=== PATIENT | female | born 1960 | race Caucasian/White ===

== ENCOUNTER 2016-11-16 14:10 | Emergency (ER) | payer BC, OTHER ==
[2016-11-16] MEDS ORDERED: IPRATROPIUM/ALBUTEROL 0.5-2.5 MG/3 ML AMPUL NEB ONE (14:31)
[2016-11-16] MEDS ORDERED: PREDNISONE 20 MG TABLET PO ONE (14:31)
--- NOTE | 2016-11-16 15:00 | ER Document Report ---
ED Respiratory Problem - General Chief Complaint: Medication Refill Stated Complaint: DIFFICULTY BREATHING Time Seen by Provider: 11/16/16 14:26 Mode of Arrival: Ambulatory Information source: Patient Notes: 56-year-old female presents to ED for shortness of breath wheezing. She states she is on asthma occasions and she is out of her albuterol inhaler. She states that work today she became very short of breath. TRAVEL OUTSIDE OF THE [place] IN LAST 30 DAYS: No - HPI Patient complains to provider of: Asthma, Short of breath Onset: Other - Exacerbation Initiating Event: Out of meds Quality of pain: Achy Severity: Moderate Pain Level: 3 Context: Hx asthma Short of Breath: Mild Chest pain/discomfort: Tightness Cough: Nonproductive Sputum amount: None At home treatment: Bronchodilators, Inhaled steroids Associated symptoms: Difficulty breathing, Wheezing Similar symptoms previously: Yes Recently seen / treated by doctor: No - Related Data Allergies/Adverse Reactions: codeine [Codeine] Allergy (Verified 09/02/13 07:22) Past Medical History - General Information source: Patient - Social History Smoking Status: Former Smoker Cigarette use (# per day): No Chew tobacco use (# tins/day): No Smoking Education Provided: No Frequency of alcohol use: None Drug Abuse: None Occupation: [employer] Lives with: Family Family History: None - Adopted Patient has suicidal ideation: No Patient has homicidal ideation: No - Past Medical History Cardiac Medical History: Reports: None Pulmonary Medical History: Reports: Hx Asthma EENT Medical History: Reports: None Neurological Medical History: Reports: None Endocrine Medical History: Reports: None Renal/ Medical History: Reports: None Malignancy Medical History: Reports: None GI Medical History: Reports: None Musculoskeltal Medical History: Reports None Skin Medical History: Reports None Psychiatric Medical History: Reports: None Traumatic Medical History: Reports: None Infectious Medical History: Reports: None Past Surgical History: Reports: Hx Hysterectomy - Immunizations Hx Diphtheria, Pertussis, Tetanus Vaccination: No Review of Systems - Review of Systems Constitutional: No symptoms reported EENT: No symptoms reported Cardiovascular: No symptoms reported Respiratory: Short of breath, Wheezing Gastrointestinal: No symptoms reported Genitourinary: No symptoms reported Female Genitourinary: No symptoms reported Musculoskeletal: No symptoms reported Skin: No symptoms reported Hematologic/Lymphatic: No symptoms reported Neurological/Psychological: No symptoms reported -: Yes All other systems reviewed and negative Physical Exam - Vital signs Vitals: Temp Pulse Resp BP Pulse Ox 98.1 F 102 H 18 137/79 H 94 11/16/16 14:12 11/16/16 14:12 11/16/16 14:12 11/16/16 14:12 11/16/16 14:12 Interpretation: Normal - General General appearance: Appears well, Alert - HEENT Head: Normocephalic, Atraumatic Eyes: Normal Pupils: PERRL - Respiratory Respiratory status: No respiratory distress Chest status: Nontender Breath sounds: Nonproductive cough, Wheezing Chest palpation: Normal - Cardiovascular Rhythm: Regular Heart sounds: Normal auscultation Murmur: No - Abdominal Inspection: Normal Distension: No distension Bowel sounds: Normal Tenderness: Nontender Organomegaly: No organomegaly - Back Back: Normal, Nontender - Extremities General upper extremity: Normal inspection, Nontender, Normal color, Normal ROM , Normal temperature General lower extremity: Normal inspection, Nontender, Normal color, Normal ROM , Normal temperature, Normal weight bearing. No: Lavon's sign - Neurological Neuro grossly intact: Yes Cognition: Normal Orientation: AAOx4 [place] Coma Scale Eye Opening: Spontaneous [place] Coma Scale Verbal: Oriented [place] Coma Scale Motor: Obeys Commands [place] Coma Scale Total: 15 Speech: Normal Motor strength normal: LUE, RUE, LLE, RLE Sensory: Normal - Psychological Associated symptoms: Normal affect, Normal mood - Skin Skin Temperature: Warm Skin Moisture: Dry Skin Color: Normal Course - Re-evaluation Re-evalutation: 11/16/16 15:05 Patient was treated with albuterol DuoNeb and prednisone and discharged home with prescription for albuterol inhaler and prednisone. Patient to follow-up with her primary doctor. - Vital Signs Vital signs: Temp Pulse Resp BP Pulse Ox 97.8 F 92 20 115/62 93 11/16/16 15:59 11/16/16 15:59 11/16/16 15:59 11/16/16 15:59 11/16/16 15:59 Discharge - Discharge Clinical Impression: Asthma exacerbation Condition: Stable Disposition: HOME, SELF-CARE Instructions: Family Physicians / Practices Additional Instructions: ASTHMA: You have been diagnosed as having asthma. This is a condition where there is episodic tightness in the bronchial tubes. Allergies, infections, and polluted or cold air may be contributing factors. Emergency treatment of a severe asthma attack may include adrenaline shots , or bronchodilator aerosol. You may feel lightheaded, have a decreased exercise tolerance and a rapid pulse for an hour or two. Rest and get plenty of fluids. Home treatment of asthma requires bronchodilator drugs. These can be administered by injection, inhalation, or by mouth. Antibiotics and corticosteroids may be required for some patients. You should avoid chemical fumes, dusts, pollens, and exercising in very cold or dry air. If you smoke, stop!! If you develop a fever, increased wheezing, chest pain, or severe shortness of breath, you should contact the doctor immediately. STEROID MEDICATION: You have been given an injection of or oral medicine of the cortisone/ steroid class. This medication is used to control inflammation or allergy. Zay t is usually only given for a short period of time, until the acute process subsides. There are usually no side effects from short-term use of cortisone-like medications. Some persons feel an increased sense of well-being and are not sleepy at bedtime. Long-term use of cortisone medications is best avoided, unless required for a severe condition. If your condition does not remit, or relapses after the course of corticosteroid medication, you should consult your physician. INHALED BRONCHODILATORS: You have received treatment(s) of and/or prescription for an inhaled bronchodilator -- a medication which stimulates the airways in the lung to dilate. This improves the flow of air in asthma, bronchitis, and emphysema. These medicines have some similarity to adrenaline, and can cause similar side effects: shakiness, racing heart, and a sense of nervousness. These side effects decrease with time. Contact your doctor if these side effects are severe. Do not over-use the medicine. Too-frequent use of the inhaler may make it ineffective. Call your doctor if the inhaler is not controlling your symptoms at the prescribed doses. FOLLOW-UP CARE: If you have been referred to a physician for follow-up care, call the physician s office for an appointment as you were instructed or within the next two days. If you experience worsening or a significant change in your symptoms, notify the physician immediately or return to the Emergency Department at any time for re-evaluation. Prescriptions: Albuterol Sulfate [Proair HFA Inhalation Aerosol 8.5 gm MDI] 2 puff IH Q4H PRN # 1 mdi PRN Reason: Prednisone [Deltasone 20 mg Tablet] 3 tab PO DAILY 5 Days tablet Forms: Elevated Blood Pressure, Return to Work
[2016-11-16] MEDS: ALBUTEROL SULFATE 0.083% NEB 2.5 MG/3 ML AMPUL NEB SCH ×2 (15:19→15:38)
[2016-11-16 16:00] VITALS: BP 115/62
== END 2016-11-16 16:00 | disposition home or self-care (01) ==
LOC: ER 14:10
DX: J45.901 Unspecified asthma with (acute) exacerbation (principal); Z87.891 Personal history of nicotine dependence
CPT/HCPCS: 94640 ×2; 99281; J7512; J7620

== ENCOUNTER 2016-12-07 07:55 | Emergency (ER) | payer BC ==
[2016-12-07] MEDS ORDERED: ASPIRIN 81 MG TABLET, CHEWABLE PO ONE (08:22)
[2016-12-07] MEDS ORDERED: IPRATROPIUM/ALBUTEROL 0.5-2.5 MG/3 ML AMPUL NEB ONE (08:28)
[2016-12-07] MEDS ORDERED: MAGNESIUM SULFATE/D5W 1 GM/100 ML RTUPB IV ONE (08:28)
[2016-12-07] MEDS ORDERED: METHYLPREDNISOLONE INJ 125 MG/2 ML SDV IV ONE (08:28)
[2016-12-07] MEDS ORDERED: ALBUTEROL SULFATE 0.083% NEB 2.5 MG/3 ML AMPUL NEB ONE (08:28)
[2016-12-07] MEDS ORDERED: NORMAL SALINE 1000 ML 1,000 ML IV ONE (08:29)
[2016-12-07 08:46] LABS: ABSOLUTE BASOPHILS # (AUTO) 0.1 10^3/uL (0.0-0.2); ABSOLUTE EOSINOPHILS # (AUTO) 0.5 10^3/uL (0.0-0.6); ABSOLUTE MONOCYTES (AUTO) 0.9 10^3/uL (0.1-1.4); ABSOLUTE NEUT (AUTO) 7.7 10^3/uL (1.7-8.2); EOSINOPHILS % (AUTO) 4.6 % (0-6); HEMOGLOBIN 13.7 g/dL (12.0-15.5); HGB HCT DIFFERENCE -0.9; MEAN CORPUSCULAR HEMOGLOBIN 28.3 pg (27.0-33.4); MEAN CORPUSCULAR HGB CONC 32.6 g/dL (32.0-36.0); MEAN CORPUSCULAR VOLUME 87 fl (80-97); RED BLOOD COUNT 4.84 10^6/uL (3.72-5.28); SEGMENTED NEUTROPHILS % (AUTO) 68.4 % (42-78); WHITE BLOOD COUNT 11.3 10^3/uL (4.0-10.5)
[2016-12-07 09:03] LABS: ALANINE AMINOTRANSFERASE 30 U/L (9-52); ALBUMIN 4.2 g/dL (3.5-5.0); ALKALINE PHOSPHATASE 103 U/L (38-126); ANION GAP 13 (5-19); ASPARTATE AMINO TRANSFERASE 28 U/L (14-36); BILIRUBIN,DIRECT 0.3 mg/dL (0.0-0.4); BILIRUBIN,TOTAL 0.4 mg/dL (0.2-1.3); BLOOD UREA NITROGEN 12 mg/dL (7-20); CALCIUM 9.1 mg/dL (8.4-10.2); CARBON DIOXIDE 22 mmol/L (22-30); CHLORIDE 104 mmol/L (98-107); CREATINE KINASE 181 U/L (30-135); CREATININE RESULT 0.62 mg/dL (0.52-1.25); GLUCOSE 157 mg/dL (75-110); POTASSIUM 4.1 mmol/L (3.6-5.0); SODIUM 138.6 mmol/L (137-145); TOTAL PROTEIN 6.9 g/dL (6.3-8.2)
[2016-12-07 09:14] LABS: CREATINE KINASE MB 1.71 ng/mL (<4.55)
[2016-12-07 09:20] LABS: TROPONIN I < 0.012 ng/mL
--- NOTE | 2016-12-07 10:24 | RADIOLOGY REPORT (SQ) ---
EXAM DESCRIPTION: CHEST PA/LAT COMPLETED DATE/TIME: 12/07/2016 10:05 am REASON FOR STUDY: sob COMPARISON: 2008. NUMBER OF VIEWS: Two view. TECHNIQUE: Frontal and lateral radiographic views of the chest acquired. LIMITATIONS: None. FINDINGS: LUNGS AND PLEURA: No opacities, masses or pneumothorax. No pleural effusion. Attenuated bl ood vessels and flattened damián-diaphragms. MEDIASTINUM AND HILAR STRUCTURES: No masses. No contour abnormalities. HEART AND VASCULAR STRUCTURES: Heart normal in size and contour. No evidence for failure. BONES: No fracture or bone lesion detected. Possible osteopenia. HARDWARE: None in the chest. OTHER: No other significant finding. IMPRESSION: COPD. NO ACUTE RADIOGRAPHIC FINDING IN THE CHEST. TECHNICAL DOCUMENTATION: JOB ID: [id number] [employer]- All Rights Reserved
[2016-12-07] MEDS ORDERED: ALBUTEROL SULFATE HFA (90 MCG/PUFF) 8 GM MDI (1 MDI/ER DISP) IH ONE (11:24)
[2016-12-07] MEDS ORDERED: PREDNISONE 20 MG TABLET PO ONE (11:26)
--- NOTE | 2016-12-07 11:27 | ER Document Report ---
ED General - General Chief Complaint: Shortness Of Breath Stated Complaint: DIFFICULTY BREATHING Time Seen by Provider: 12/07/16 08:22 TRAVEL OUTSIDE OF THE [place] IN LAST 30 DAYS: No - HPI Patient complains to provider of: Shortness of breath Notes: Patient coming in with a 3-4 day history of shortness of breath. Patient has a productive cough ever clear sputum a change from her norm. Patient has been using her albuterol rescue inhaler at home however no relief. has stopped smoking for greater than a month however does have significant smoking history in the past. Denies any recent travel denies any chest pain nausea fevers chills nausea vomiting diarrhea. By my evaluation patient is resting comfortably with some audible wheezing. - Related Data Allergies/Adverse Reactions: codeine [Codeine] Allergy (Verified 12/07/16 07:59) Past Medical History - Social History Smoking Status: Former Smoker Chew tobacco use (# tins/day): No Frequency of alcohol use: None Drug Abuse: None Family History: None - Adopted Pulmonary Medical History: Reports: Hx Asthma, Hx COPD Renal/ Medical History: Denies: Hx Peritoneal Dialysis Past Surgical History: Reports: Hx Hysterectomy - Immunizations Hx Diphtheria, Pertussis, Tetanus Vaccination: No Review of Systems - Review of Systems Constitutional: No symptoms reported EENT: No symptoms reported Cardiovascular: No symptoms reported Respiratory: Short of breath, Wheezing Gastrointestinal: No symptoms reported Genitourinary: No symptoms reported Female Genitourinary: No symptoms reported Musculoskeletal: No symptoms reported Skin: No symptoms reported Hematologic/Lymphatic: No symptoms reported Neurological/Psychological: No symptoms reported -: Yes All other systems reviewed and negative Physical Exam - Vital signs Vitals: Temp Pulse Resp BP Pulse Ox 98.3 F 111 H 26 H 137/77 H 92 12/07/16 08:00 12/07/16 08:00 12/07/16 08:00 12/07/16 08:00 12/07/16 08:00 Interpretation: Normal - General General appearance: Appears well, Alert - HEENT Head: Normocephalic, Atraumatic Eyes: Normal Pupils: PERRL - Respiratory Respiratory status: No respiratory distress Chest status: Nontender Breath sounds: Wheezing Chest palpation: Normal - Cardiovascular Rhythm: Regular Heart sounds: Normal auscultation Murmur: No - Abdominal Inspection: Normal Distension: No distension Bowel sounds: Normal Tenderness: Nontender Organomegaly: No organomegaly - Back Back: Normal, Nontender - Extremities General upper extremity: Normal inspection, Nontender, Normal color, Normal ROM , Normal temperature General lower extremity: Normal inspection, Nontender, Normal color, Normal ROM , Normal temperature, Normal weight bearing. No: Lavon's sign - Neurological Neuro grossly intact: Yes Cognition: Normal Orientation: AAOx4 [place] Coma Scale Eye Opening: Spontaneous [place] Coma Scale Verbal: Oriented [place] Coma Scale Motor: Obeys Commands [place] Coma Scale Total: 15 Speech: Normal Motor strength normal: LUE, RUE, LLE, RLE Sensory: Normal - Psychological Associated symptoms: Normal affect, Normal mood - Skin Skin Temperature: Warm Skin Moisture: Dry Skin Color: Normal Course - Re-evaluation Re-evalutation: 12/07/16 14:08 Patient coming in for COPD exacerbation. Patient received a neb was treatments and magnesium along with steroids. Patient states improvement afterwards patient was able to ambulate around the ER without tachypnea or hypoxia. We will treat patient's out patient with steroids and bronchodilators. Patient is to return to ER symptoms worsen. pt agrees with plan - Vital Signs Vital signs: Temp Pulse Resp BP Pulse Ox 98.3 F 112 H 20 124/67 96 12/07/16 08:00 12/07/16 10:17 12/07/16 11:39 12/07/16 11:39 12/07/16 11:39 - Laboratory Result Diagrams: 12/07/16 08:35 12/07/16 08:35 Laboratory results interpreted by me: 12/07/16 12/07/16 08:35 08:35 WBC 11.3 H RDW 15.0 H Glucose 157 H Creatine Kinase 181 H Discharge - Discharge Clinical Impression: COPD exacerbation Condition: Good Disposition: HOME, SELF-CARE Instructions: Chronic Obstructive Lung Disease ([facility]) Additional Instructions: Follow-up with your primary care physician. Return to the ER if symptoms worsen. Take medications as prescribed. Please use the inhaler that we gave you here in ER 2 puffs every 4 hours for the next 5 days. Prescriptions: Prednisone [Deltasone 20 mg Tablet] 3 tab PO DAILY 5 Days tablet Forms: Return to Work
[2016-12-07 11:49] VITALS: BP 124/67
--- NOTE | 2016-12-07 20:17 | EKG REPORT ---
SEVERITY:- BORDERLINE ECG - SINUS TACHYCARDIA PROBABLE LEFT ATRIAL ABNORMALITY BORDERLINE T ABNORMALITIES, ANT-LAT LEADS : Confirmed by: Rivas Barreto MD 07-Dec-2016 20:16:19
== END 2016-12-07 11:49 | disposition home or self-care (01) ==
LOC: ER 07:55
DX: J44.1 Chronic obstructive pulmonary disease with (acute) exacerbation (principal); J45.909 Unspecified asthma, uncomplicated; Z88.6 Allergy status to analgesic agent; Z87.891 Personal history of nicotine dependence
CPT/HCPCS: 93005; 94640 ×2; 99285; 96374; 96375; 36415; 82553; 82550; 83735; 85025; 80053; 84484; 71020; 93010; J2930; J3475; J7512; J7030; J3490; J7620

== ENCOUNTER 2018-10-05 13:59 | Inpatient (IN) | payer SELFPAY ==
[~2018-10-05 13:59] MED LIST: DEXAMETHASONE SOD PHOSPHATE INJ 4 MG/1 ML VIAL ONE; KETOROLAC TROMETHAMINE 60 MG/2 ML SDV ONE; LIDOCAINE 2% INJ-PF (20 MG/ML) 2 ML AMPUL ONE; METOCLOPRAMIDE HCL INJ/PF 10 MG/2 ML SDV ONE; ONDANSETRON HCL INJ/PF 4 MG/2 ML SDV ONE; PHENYLEPHRINE HCL INJ/PF 10 MG/1 ML SDV ONE
--- NOTE | 2018-10-05 14:48 | ER Document Report ---
ED Medical Screen (RME) - General Chief Complaint: Groin Pain Stated Complaint: GROIN PAIN Time Seen by Provider: 10/05/18 14:44 Mode of Arrival: Ambulatory Information source: Patient Notes: 58-year-old female presented to ED for complaint of left groin pain with a very large hard lump for couple months. She states the lump has grown over the last couple days and is become much more painful. Patient is alert oriented respirations regular and unlabored speaking in full sentences. She states her only medical history of COPD. I have greeted and performed a rapid initial assessment of this patient. A comprehensive ED assessment and evaluation of the patient, analysis of test results and completion of medical decision making process will be conducted by an additional ED providers. Dictation of this chart was performed using voice recognition software; therefore, there may be some unintended grammatical errors. TRAVEL OUTSIDE OF THE [place] IN LAST 30 DAYS: No - Related Data Allergies/Adverse Reactions: codeine [Codeine] Allergy (Verified 10/05/18 14:11) Past Medical History Pulmonary Medical History: Reports: Hx Asthma, Hx COPD Renal/ Medical History: Denies: Hx Peritoneal Dialysis Past Surgical History: Reports: Hx Hysterectomy - Immunizations Hx Diphtheria, Pertussis, Tetanus Vaccination: No Physical Exam - Vital signs Vitals: Temp Pulse Resp BP Pulse Ox 98.6 F 100 16 124/74 97 10/05/18 14:24 10/05/18 14:24 10/05/18 14:24 10/05/18 14:24 10/05/18 14:24 Course - Vital Signs Vital signs: Temp Pulse Resp BP Pulse Ox 98.6 F 100 16 124/74 97 10/05/18 14:24 10/05/18 14:24 10/05/18 14:24 10/05/18 14:24 10/05/18 14:24
[2018-10-05 15:55] LABS: ALANINE AMINOTRANSFERASE 33 U/L (9-52); ALBUMIN 4.8 g/dL (3.5-5.0); ALKALINE PHOSPHATASE 135 U/L (38-126); ANION GAP 13 (5-19); ASPARTATE AMINO TRANSFERASE 36 U/L (14-36); BILIRUBIN,DIRECT 0.4 mg/dL (0.0-0.4); BILIRUBIN,TOTAL 0.6 mg/dL (0.2-1.3); BLOOD UREA NITROGEN 5 mg/dL (7-20); CALCIUM 9.7 mg/dL (8.4-10.2); CARBON DIOXIDE 27 mmol/L (22-30); CHLORIDE 98 mmol/L (98-107); GLUCOSE 81 mg/dL (75-110); POTASSIUM 4.4 mmol/L (3.6-5.0); SODIUM 137.6 mmol/L (137-145); TOTAL PROTEIN 8.3 g/dL (6.3-8.2)
[2018-10-05 16:00] LABS: APPEARANCE,URINE CLEAR; BILIRUBIN,URINE NEGATIVE (NEGATIVE); COLOR,URINE YELLOW; GLUCOSE, URINE NEGATIVE (NEGATIVE); KETONES,URINE NEGATIVE (NEGATIVE); URINE SPECIFIC GRAVITY 1.012
[2018-10-05 16:01] LABS: LEUKOCYTE ESTERASE,URINE LARGE (NEGATIVE); NITRITE,URINE NEGATIVE (NEGATIVE); PROTEIN,URINE NEGATIVE (NEGATIVE)
--- NOTE | 2018-10-05 16:34 | RADIOLOGY REPORT (SQ) ---
EXAM DESCRIPTION: U/S NON-OB PELVIS LTD W/O DOP COMPLETED DATE/TIME: 10/05/2018 4:22 pm REASON FOR STUDY: large lump left pelvic/lower abdomen COMPARISON: None. TECHNIQUE: Dynamic and static grayscale images acquired of the localized site of clinical concern an d recorded on PACS. Additional selected color Doppler and spectral images recorded. SITE OF CONCERN: Left inguinal region. LIMITATIONS: None. FINDINGS: Multiple lymph nodes are identified in the left inguinal region with two of the largest me asuring 2.2 x 1.2 x 1.0 cm and 1.5 x 1.4 x 0.8 cm. A large complex cystic/ echogenic appearing solid mass in the left inguinal canal. The cystic compon ent measures 4.4 x 2.1 x 2.6 cm. The echogenic mass-like component measures 2.5 x 1.8 x 1.9 cm. IMPRESSION: 1. A large complex cystic/echogenic solid mass in the left inguinal canal. Further espinoza luation with CT abdomen and pelvis with IV contrast suggested. 2. Multiple lymph nodes are noted in the left inguinal region. TECHNICAL DOCUMENTATION: JOB ID: [id number] [employer]- All Rights Reserved Reading location - IP/workstation name: [email or web address]
[2018-10-05 16:42] LABS: ABSOLUTE BASOPHILS # (AUTO) 0.1 10^3/uL (0.0-0.2); ABSOLUTE EOSINOPHILS # (AUTO) 0.2 10^3/uL (0.0-0.6); ABSOLUTE LYMPHOCYTES (AUTO) 3.1 10^3/uL (0.5-4.7); ABSOLUTE MONOCYTES (AUTO) 1.3 10^3/uL (0.1-1.4); ABSOLUTE NEUT (AUTO) 8.1 10^3/uL (1.7-8.2); BASOPHILS % (AUTO) 0.7 % (0-2); EOSINOPHILS % (AUTO) 1.9 % (0-6); HEMATOCRIT 41.9 % (36.0-47.0); HEMOGLOBIN 13.9 g/dL (12.0-15.5); MEAN CORPUSCULAR HEMOGLOBIN 27.4 pg (27.0-33.4); MEAN CORPUSCULAR VOLUME 83 fl (80-97); MONOCYTES % (AUTO) 10.3 % (3-13); PLATELET COUNT 470 10^3/uL (150-450); RED BLOOD COUNT 5.06 10^6/uL (3.72-5.28); RED CELL DISTRIBUTION WIDTH 14.8 % (11.5-14.0); SEGMENTED NEUTROPHILS % (AUTO) 63.1 % (42-78); TOTAL CELLS COUNTED % (AUTO) 100 %; WHITE BLOOD COUNT 12.8 10^3/uL (4.0-10.5)
[2018-10-05] MEDS ORDERED: MORPHINE SULFATE 10 MG/ML INJ IV ONE (20:09)
[2018-10-05] MEDS ORDERED: ONDANSETRON HCL INJ/PF 4 MG/2 ML SDV IV ONE (20:09)
--- NOTE | 2018-10-05 20:11 | ER Document Report ---
ED General - General Chief Complaint: Groin Pain Stated Complaint: GROIN PAIN Time Seen by Provider: 10/05/18 14:44 Mode of Arrival: Ambulatory Notes: Patient is a 58 year old female that comes to the emergency department for chief complaint of a painful, swollen area to the left groin. She states she has noticed a bump there for a couple of months but over the past 2 days it has become much more noticeable, seems to be larger, is much more tender. She states it is hard to walk because of the pain. She reports normal bowel movements, denies fever/chills, denies any other areas of pain. She has a history of COPD, quit smoking this year, hysterectomy, denies any medical history otherwise. TRAVEL OUTSIDE OF THE [place] IN LAST 30 DAYS: No - Related Data Allergies/Adverse Reactions: codeine [Codeine] Allergy (Verified 10/05/18 14:11) Past Medical History - General Information source: Patient - Social History Smoking Status: Former Smoker Frequency of alcohol use: None Drug Abuse: None Lives with: Family Family History: None - Adopted Patient has suicidal ideation: No Patient has homicidal ideation: No Pulmonary Medical History: Reports: Hx COPD Renal/ Medical History: Denies: Hx Peritoneal Dialysis Past Surgical History: Reports: Hx Hysterectomy - Immunizations Immunizations up to date: Yes Hx Diphtheria, Pertussis, Tetanus Vaccination: Yes Review of Systems - Review of Systems Constitutional: No symptoms reported EENT: No symptoms reported Cardiovascular: No symptoms reported Respiratory: No symptoms reported Gastrointestinal: See HPI Genitourinary: See HPI Female Genitourinary: See HPI Musculoskeletal: No symptoms reported Skin: No symptoms reported Hematologic/Lymphatic: No symptoms reported Neurological/Psychological: No symptoms reported Physical Exam - Vital signs Vitals: Temp Pulse Resp BP Pulse Ox 98.6 F 100 16 124/74 97 10/05/18 14:24 10/05/18 14:24 10/05/18 14:24 10/05/18 14:24 10/05/18 14:24 - Notes Notes: GENERAL: Alert, interacts well. No acute distress. HEAD: Normocephalic, atraumatic. EYES: Pupils equal, round, and reactive to light. Extraocular movements intact. ENT: Oral mucosa moist, tongue midline. Oropharynx unremarkable. Airway patent. LUNGS: Clear to auscultation bilaterally, no wheezes, rales, or rhonchi. No respiratory distress. HEART: Regular rate and rhythm. No murmur ABDOMEN: There is a swollen and tender area that is quite firm to the touch over the left inguinal/hip area, does not feel like a bowel, patient has tenderness when this is palpated although there is no guarding over the area. No abnormal erythema or heat, remaining abdomen is soft and benign. EXTREMITIES: Moves all 4 extremities spontaneously. No edema, normal radial and dorsalis pedis pulses bilaterally. No cyanosis. BACK: no cervical, thoracic, lumbar midline tenderness. No saddle anesthesia, normal distal neurovascular exam. Moves all extremities in full range of motion. NEUROLOGICAL: Alert and oriented x3. Normal speech. Cranial nerves II through XII grossly intact. PSYCH: Normal affect, normal mood. SKIN: Warm, dry, normal turgor. No rashes or lesions noted. Course - Re-evaluation Re-evalutation: CBC unremarkable, chemistry unremarkable, urinalysis unremarkable except for some white blood cells but there are a lot of squamous epithelials. Patient's physical exam is strange, shows a bulging area that is firm over the left inguinal area, feels too firm to be a hernia, there is tenderness, no erythema. I did review work-up from triage, this shows ultrasound showing fluid and possible cystic versus mass structure in the left inguinal area, radiologist recommends CAT scan with IV contrast. This was performed, CAT scan showing what appears to be left inguinal hernia without bowel visualized in the hernia (contains fat and fluid). Lactic acid drawn, I called general surgeon Dr. Marrero, will come see the patient. Dr. Marrero evaluated the patient, he will be taking the patient to the operating room. Patient has been kept n.p.o. - Vital Signs Vital signs: Temp Pulse Resp BP Pulse Ox 97.9 F 97 18 150/71 H 93 10/06/18 02:00 10/06/18 02:00 10/06/18 02:00 10/06/18 02:00 10/06/18 02:00 - Laboratory Result Diagrams: 10/05/18 15:00 10/05/18 15:00 Laboratory results interpreted by me: 10/05/18 10/05/18 10/05/18 15:00 15:00 15:00 WBC 12.8 H RDW 14.8 H Plt Count 470 H BUN 5 L Lactic Acid Alkaline Phosphatase 135 H Total Protein 8.3 H Urine Urobilinogen 2.0 H Ur Leukocyte Esterase LARGE H 10/05/18 22:08 WBC RDW Plt Count BUN Lactic Acid 0.6 L Alkaline Phosphatase Total Protein Urine Urobilinogen Ur Leukocyte Esterase Discharge - Discharge Clinical Impression: Left inguinal hernia Abdominal pain Qualifiers: Abdominal location: left lower quadrant Qualified Code(s): R10.32 - Left lower quadrant pain Condition: Stable Disposition: ADMITTED OBSERVATION Admitting Provider: Surgicalist Unit Admitted: OR
--- NOTE | 2018-10-05 21:51 | RADIOLOGY REPORT (SQ) ---
EXAM DESCRIPTION: CT ABDOMEN PELVIS WITH IV CONTRAST COMPLETED DATE/TME: 10/05/2018 20:08 CLINICAL HISTORY: 58 years Female pain and swelling in left groin, abn ultrasound COMPARISON: None. TECHNIQUE: Contiguous axial images obtained through the abdomen and pelvis following IV contrast. Reformatted images obtained. This exam was performed according to our department optimization program which includes automated exposure control, adjustment of the mA and/or kv according to patient size and/or use of iterative reconstruction technique. FINDINGS: The liver appears unremarkable. The spleen and pancreas appear unremarkable. No adrenal masses. The kidneys appear unremarkable. No hydronephrosis. The gallbladder is present with large gallstone noted. No obvious wall thickening. No aneurysmal dilatation of the aorta. No bowel obstruction. The appendix is unremarkable. No free fluid in the pelvis. Alston catheter in the decompressed urinary bladder. There is a fat-containing hernia on the left which contains a small amount of fluid. Adjacent adenopathy is noted. No extension of bowel into the lesion is noted. IMPRESSION: There is a fat and fluid-containing left inguinal hernia. Hernia does not appear to contain bowel. The possibility of strangulation or incarceration of the herniated fat is not excluded on the basis of this exam Reactive inguinal adenopathy
[2018-10-05] MEDS ORDERED: NORMAL SALINE 1000 ML 1,000 ML IV PRN (22:04)
[2018-10-05] MEDS ORDERED: NORMAL SALINE 1000 ML 1,000 ML IV ONE (22:04)
--- NOTE | 2018-10-05 22:56 | PDOC H&P ---
History of Present Illness Patient complains of: Left groin pain History of Present Illness: REBEKAH RASCON is a 58 year old female The patient is seen in the emergency department after being brought to [facility] via ground rescue complaining of a several day history of intense pain, swelling, redness in her left groin. According to the patient, and history corroborated by her son who was at bedside, she has had swelling intermittently in the left inguinal area for months. She has not had it evalua nancy formally. She seen in the emergency department where she had a pelvic ultrasound non-OB, which showed a mass in the left inguinal area, complex cystic in nature. She has had a series of CT scans of the abdomen and pelvis which show incarcerated possibly strangulated tissue in the left inguinal canal, not likely bowel according to radiologist interpretation. Because of persisting symptoms, surgery was consulted and evaluated at bedside at approximately 10:30 PM. SHe was found to have an incarcerated likely strangulated left inguinal hernia and deserved exploratory surgery. Past Medical History Pulmonary Medical History: Reports: Asthma, Chronic Obstructive Pulmonary Disease (COPD) Past Surgical History Past Surgical History: Reports: Hysterectomy Social History Lives with: Family Smoking Status: Former Smoker Hx Recreational Drug Use: No Hx Prescription Drug Abuse: No Family History Parental Family History Reviewed: No Children Family History Reviewed: No Sibling(s) Family History Reviewed.: No Medication/Allergy Home Medications: Oxycodone HCl/Acetaminophen [Percocet 5-325 mg Tablet] 1 - 2 tab PO ASDIR PRN #15 tablet 09/02/13 Albuterol Sulfate [Proair HFA Inhalation Aerosol 8.5 gm MDI] 2 puff IH Q4H PRN #1 mdi 11/16/16 Prednisone [Deltasone 20 mg Tablet] 3 tab PO DAILY 5 Days tablet 11/16/16 Prednisone [Deltasone 20 mg Tablet] 3 tab PO DAILY 5 Days tablet 12/07/16 Allergies/Adverse Reactions: codeine [Codeine] Allergy (Verified 10/05/18 14:11) Review of Systems Constitutional: PRESENT: as per HPI Eyes: ABSENT: visual disturbances Ears: ABSENT: hearing changes Respiratory: PRESENT: dyspnea. ABSENT: cough, hemoptysis Gastrointestinal: PRESENT: other - Patient denies constipation, nausea vomiting or diarrhea. Genitourinary: PRESENT: as per HPI Musculoskeletal: PRESENT: back pain Psychiatric: ABSENT: anxiety, depression, homidical ideation, suicidal ideation Endocrine: ABSENT: cold intolerance, heat intolerance, polydipsia, polyuria Physical Exam Vital Signs: Temp Pulse Resp BP Pulse Ox 99.5 F 99 17 127/78 H 97 10/05/18 19:51 10/05/18 19:51 10/05/18 19:51 10/05/18 19:51 10/05/18 19:51 Intake & Output 10/04/18 10/05/18 10/06/18 06:59 06:59 06:59 Weight 49.4 kg General appearance: PRESENT: mild distress Head exam: PRESENT: normocephalic Eye exam: PRESENT: EOMI Mouth exam: PRESENT: dry mucosa Neck exam: PRESENT: full ROM Respiratory exam: PRESENT: rhonchi Cardiovascular exam: PRESENT: RRR Pulses: PRESENT: normal carotid pulses, normal radial pulses GI/Abdominal exam: PRESENT: other - Soft, nontender no peritoneal signs no rigidity. Left groin is a swollen, oblong shaped mass with overlying skin erythema, extremely tender to palpation. Unable to reduce. Shotty adenopathy at the inguinal ligament. Rectal exam: PRESENT: deferred Neurological exam: PRESENT: awake, oriented to person, oriented to place, oriented to time, oriented to situation Psychiatric exam: PRESENT: anxious Results Laboratory Results: 10/05/18 15:00 10/05/18 15:00 10/05/18 10/05/18 10/05/18 15:00 15:00 15:00 WBC 12.8 H RBC 5.06 Hgb 13.9 Hct 41.9 MCV 83 MCH 27.4 MCHC 33.0 RDW 14.8 H Plt Count 470 H Seg Neutrophils % 63.1 Lymphocytes % 24.0 Monocytes % 10.3 Eosinophils % 1.9 Basophils % 0.7 Absolute Neutrophils 8.1 Absolute Lymphocytes 3.1 Absolute Monocytes 1.3 Absolute Eosinophils 0.2 Absolute Basophils 0.1 Sodium 137.6 Potassium 4.4 Chloride 98 Carbon Dioxide 27 Anion Gap 13 BUN 5 L Creatinine 0.63 Est GFR ( Amer) > 60 Est GFR (Non-Af Amer) > 60 Glucose 81 Lactic Acid Calcium 9.7 Total Bilirubin 0.6 AST 36 ALT 33 Alkaline Phosphatase 135 H Total Protein 8.3 H Albumin 4.8 Urine Color YELLOW Urine Appearance CLEAR Urine pH 6.0 Ur Specific [place] 1.012 Urine Protein NEGATIVE Urine Glucose (UA) NEGATIVE Urine Ketones NEGATIVE Urine Blood NEGATIVE Urine Nitrite NEGATIVE Ur Leukocyte Esterase LARGE H Urine WBC (Auto) 9 Urine RBC (Auto) 3 10/05/18 22:08 WBC RBC Hgb Hct MCV MCH MCHC RDW Plt Count Seg Neutrophils % Lymphocytes % Monocytes % Eosinophils % Basophils % Absolute Neutrophils Absolute Lymphocytes Absolute Monocytes Absolute Eosinophils Absolute Basophils Sodium Potassium Chloride Carbon Dioxide Anion Gap BUN Creatinine Est GFR ( Amer) Est GFR (Non-Af Amer) Glucose Lactic Acid 0.6 L Calcium Total Bilirubin AST ALT Alkaline Phosphatase Total Protein Albumin Urine Color Urine Appearance Urine pH Ur Specific [place] Urine Protein Urine Glucose (UA) Urine Ketones Urine Blood Urine Nitrite Ur Leukocyte Esterase Urine WBC (Auto) Urine RBC (Auto) Impressions: Pelvis Ultrasound 10/05/18 14:44 IMPRESSION: 1. A large complex cystic/echogenic solid mass in the left inguinal canal. Further evaluation with CT abdomen and pelvis with IV contrast suggested. 2. Multiple lymph nodes are noted in the left inguinal region. Abdomen/Pelvis CT 10/05/18 20:08 IMPRESSION: There is a fat and fluid-containing left inguinal hernia. Hernia does not appear to contain bowel. The possibility of strangulation or incarceration of the herniated fat is not excluded on the basis of this exam Reactive inguinal adenopathy Assessment & Plan - Diagnosis (1) Left inguinal hernia Is this a current diagnosis for this admission?: Yes Plan: Impression: Incarcerated likely strangulated left inguinal hernia; may contain omentum versus bowel. Patient needs emergent surgery to relieve pain, and isc hemic possibly necrotic tissue ReCommendations: 1. Admit to surgical service, keep n.p.o. on IV fluids 2. Take patient to the operating room for exploratory left inguinal canal possibly exploratory laparotomy, repair of left inguinal hernia reduction of tissue, possible tissue and even small bowel resection, [facility]. This was explained to the patient. I believe she understands and agrees to proceed. (2) COPD (chronic obstructive pulmonary disease) Is this a current diagnosis for this admission?: Yes (3) Former smoker Is this a current diagnosis for this admission?: Yes - Time Time Spent: 50 to 70 Minutes Critical Time spent with patient: Less than 15 minutes Medications reviewed and adjusted accordingly: Yes Anticipated discharge: Home - Inpatient Certification Based on my medical assessment, after consideration of the patient's comorbidities, presenting symptoms, or acuity I expect that the services needed warrant INPATIENT care.: Yes I certify that my determination is in accordance with my understanding of Medicare's requirements for reasonable and necessary INPATIENT services [42 CFR 412.3e].: Yes Medical Necessity: Need For IV Fluids, Need for Pain Control, Need for IV Antibiotics, Need for Surgery
[2018-10-05] MEDS ORDERED: RINGERS SOLUTION,LACTATED 1,000 ML IV PRN (22:58)
--- NOTE | 2018-10-05 23:26 | RADIOLOGY REPORT (SQ) ---
CLINICAL HISTORY: Preop COMPARISON: December 07, 2016. TECHNIQUE: XR CHEST 1 VIEW 10/05/2018 10:58 PM CDT FINDINGS: Cardiac silhouette is normal in size. There is upper lung emphysema. There is no focal consolidation. There is no pleural effusion. There is no pneumothorax. There are no acute osseous findings. IMPRESSION: No pneumonia.
[2018-10-05] MEDS ORDERED: DEXMEDETOMIDINE INJ 80 MCG/20 ML VIAL IV ONE (23:27)
[2018-10-05] MEDS ORDERED: MIDAZOLAM 2 MG/2 ML INJ ONE (23:27)
[2018-10-05] MEDS ORDERED: FENTANYL CITRATE INJ/PF 250 MCG/5 ML AMPULE ONE (23:27)
[2018-10-05] MEDS ORDERED: EPHEDRINE SULFATE INJ 50 MG/1 ML AMPULE ONE (23:27)
[2018-10-05] MEDS ORDERED: MORPHINE SULFATE 10 MG/ML INJ ONE (23:27)
[2018-10-05] MEDS ORDERED: SUGAMMADEX SODIUM 200 MG/2 ML SDV IV ONE (23:27)
[2018-10-05] MEDS ORDERED: PROPOFOL INJ 200 MG/20 ML VIAL IV ONE (23:28)
[2018-10-05] MEDS ORDERED: AMPICILLIN SODIUM/SULBACTAM NA 3 GM in NORMAL SALINE 100 ML IV ONE (23:30)
[2018-10-05] MEDS ORDERED: BUPIVACAINE INJ/PF LIPOSOME/PF 266 MG/20 ML SDV ONE (23:31)
[2018-10-05] MEDS ORDERED: BUPIVACAINE HCL 0.25 % INJ/PF (2.5 MG/1 ML) 30 ML VIAL ONE (23:31)
[2018-10-05] MEDS ORDERED: AMPICILLIN SOD/SULBACTAM 3 GM VIAL ONE (23:55)
[2018-10-06] MEDS ORDERED: KETOROLAC TROMETHAMINE INJ/PF 30 MG/1 ML SDV IV PRN (01:02)
--- NOTE | 2018-10-06 01:10 | Operative Report ---
Operative Report DATE OF SURGERY: 10/06/18 PREOPERATIVE DIAGNOSIS: Strangulated left inguinal hernia POSTOPERATIVE DIAGNOSIS: Strangulated left femoral hernia with ischemic omentum OPERATION: Left inguinal exploration, partial omentectomy, partial lymphadenectomy superficial left inguinal region, primary closure of the left femoral hernia SURGEON: NASH WYNNE ANESTHESIA: GA TISSUE REMOVED OR ALTERED: Portion of left hernia sac, portion of omentum, left inguinal lymph nodes COMPLICATIONS: None ESTIMATED BLOOD LOSS: Minimal INTRAOPERATIVE FINDINGS: See below PROCEDURE: The patient was taken from the preop holding area to the main operating room where general anesthesia was induced. A Alston catheter was inserted and clear yellow urine returned. The abdomen and inguinal area was prepped and draped in sterile fashion. Surgical plan and surgical timeout were conducted. The left inguinal area at the site of the palpable oblong shaped mass was anesthetized with quarter percent Marcaine. Approximately 6 cm diagonal incision was made over the palpable mass. Using a combination of blunt and electrocautery dissection, the surrounding subcutaneous tissue and Yolis's fascia was divided. We got down on the mass which was approximately 4 cm in diameter, and dissected the fascia laterally, and released it with scissors so as to allow the mass to intrude further out of the peritoneal cavity. We opened up the lining of the mass which in fact was the peritoneum. The peritoneum at this point was extremely thickened and chronically inflamed. Once inside the sac, we identified the mass which was a 2-1/2 cm ball of incarcerated and now ischemic omentum suspended by a small thin pedicle of tissue. The mass band off its pedicle, divided, and the proximal pedicle oversewn with a 2-0 Vicryl suture. The mass was sent to pathology as ischemic omentum. I now debrided the redundant hernia sac with electrocautery. The sac was in extension of the deeper retroperitoneal tissue which was not harmed during the process. I Closed the peritoneum in a pursestring fashion with 2-0 running Vicryl suture. I allow this portion of the peritoneum to talk down back into the retroperitoneal space. It was now apparent by exploring the anatomy that the defect in fact was not an inguinal hernia but a true femoral hernia. There was significant superficial inflamed and partially necrotic lymph nodes; several were excisionally debrided with electrocautery and sent with the hernia sac remnant and ischemic omentum to pathology. We irrigated the groin out nicely. I felt the debridement and closure was satisfactory. I now closed the femoral hernia with approximately 6 figure-of- eight 0 PDS sutures plicating the inguinal ligament down to the made tissue, and the deep fascia overlying the left common femoral artery and vein. Once this was accomplished, I felt the repair was secure. No mesh was used. No drain was placed. The wound was closed in layers with 2-0 Vicryl 3-0 Vicryl Dermabond glue. Patient tolerated procedure well, extubated, taken recovery in stable condition.
[2018-10-06] MEDS ORDERED: ONDANSETRON HCL INJ/PF 4 MG/2 ML SDV IV PRN (01:30)
[2018-10-06] MEDS ORDERED: DIPHENHYDRAMINE HCL 50 MG/ML VIAL IV PRN (01:30)
[2018-10-06] MEDS ORDERED: PROMETHAZINE HCL INJ 25 MG/1 ML VIAL IV PRN (01:30)
[2018-10-06] MEDS ORDERED: FENTANYL CITRATE INJ/PF 100 MCG/2 ML AMPUL IV PRN ×3 (01:30)
[2018-10-06] MEDS ORDERED: KETOROLAC TROMETHAMINE 10 MG TABLET ONE (02:32)
[2018-10-06] MEDS: KETOROLAC TROMETHAMINE 10 MG TABLET PO PRN ×3 (02:34→18:20)
[2018-10-06] MEDS ORDERED: ONDANSETRON HCL INJ/PF 4 MG/2 ML SDV IV ONE (09:00)
--- NOTE | 2018-10-06 09:50 | RADIOLOGY REPORT (SQ) ---
EXAM DESCRIPTION: ABDOMEN 2 VIEWS COMPLETED DATE/TIME: 10/06/2018 9:26 am REASON FOR STUDY: nausea and vomiting post repair of left femoral hernia COMPARISON: CT abdomen pelvis 10/05/2018 Right inguinal region ultrasound 10/05/2018 NUMBER OF VIEWS: Two views. TECHNIQUE: Supine and upright radiographic images of the abdomen acquired. LIMITATIONS: None. FINDINGS: FREE AIR: None. No abnormal gas collections. LUNG BASES: Clear. BOWEL GAS PATTERN: Nonspecific bowel gas pattern. There is gas and stool throughout the colon, and there is air in nondistended small bowel loops in the mid abdomen. This may represent an ileus. Iker devine were discussed with Dr. Ayala CALCIFICATIONS: No suspicious calcifications. SOFT TISSUES: No gross mass or suggestion of organomegaly. HARDWARE: None in the abdomen. BONES: No acute fracture. No worrisome bone lesions. OTHER: No other significant finding. IMPRESSION: Probable ileus. TECHNICAL DOCUMENTATION: JOB ID: [id number] 1913 [employer]- All Rights Reserved Reading location - IP/workstation name: [email or web address]
[2018-10-06 10:07] LABS: ALANINE AMINOTRANSFERASE 29 U/L (9-52); ALBUMIN 3.4 g/dL (3.5-5.0); ALKALINE PHOSPHATASE 108 U/L (38-126); ANION GAP 7 (5-19); ASPARTATE AMINO TRANSFERASE 33 U/L (14-36); BILIRUBIN,DIRECT 0.2 mg/dL (0.0-0.4); BILIRUBIN,TOTAL 0.5 mg/dL (0.2-1.3); BLOOD UREA NITROGEN 6 mg/dL (7-20); CALCIUM 8.8 mg/dL (8.4-10.2); CARBON DIOXIDE 22 mmol/L (22-30); CHLORIDE 105 mmol/L (98-107); GLUCOSE 133 mg/dL (75-110); POTASSIUM 4.4 mmol/L (3.6-5.0); SODIUM 134.3 mmol/L (137-145); TOTAL PROTEIN 6.1 g/dL (6.3-8.2)
[2018-10-06 10:10] LABS: ABSOLUTE BASOPHILS # (AUTO) 0.1 10^3/uL (0.0-0.2); ABSOLUTE LYMPHOCYTES (AUTO) 1.2 10^3/uL (0.5-4.7); ABSOLUTE MONOCYTES (AUTO) 0.5 10^3/uL (0.1-1.4); ABSOLUTE NEUT (AUTO) 8.9 10^3/uL (1.7-8.2); BASOPHILS % (AUTO) 0.5 % (0-2); HEMATOCRIT 34.9 % (36.0-47.0); HEMOGLOBIN 11.8 g/dL (12.0-15.5); LYMPHOCYTES % (AUTO) 10.9 % (13-45); MEAN CORPUSCULAR HEMOGLOBIN 27.9 pg (27.0-33.4); MEAN CORPUSCULAR HGB CONC 33.8 g/dL (32.0-36.0); MEAN CORPUSCULAR VOLUME 83 fl (80-97); MONOCYTES % (AUTO) 4.9 % (3-13); PLATELET COUNT 400 10^3/uL (150-450); RED BLOOD COUNT 4.22 10^6/uL (3.72-5.28); RED CELL DISTRIBUTION WIDTH 14.6 % (11.5-14.0); SEGMENTED NEUTROPHILS % (AUTO) 83.7 % (42-78); TOTAL CELLS COUNTED % (AUTO) 100 %; WHITE BLOOD COUNT 10.6 10^3/uL (4.0-10.5)
[2018-10-06] MEDS: FAMOTIDINE 20 MG TABLET PO SCH ×2 (11:14→18:20)
[2018-10-06] MEDS: DOCUSATE SODIUM 100 MG CAPSULE PO SCH ×2 (11:14→18:21)
[2018-10-06] MEDS ORDERED: DEXTROSE 50%-WATER 25 GM/50 ML DISP.SYRIN IV PRN ×2 (13:49)
[2018-10-06] MEDS ORDERED: RINGERS SOLUTION,LACTATED 1,000 ML IV PRN (13:49)
[2018-10-06] MEDS ORDERED: GLUCAGON,HUMAN RECOMB 1 MG INJ SUBCUT PRN (13:49)
[2018-10-06] MEDS ORDERED: DEXTROSE 40% GEL 15 GM TUBE PO PRN ×2 (13:49)
--- NOTE | 2018-10-06 13:51 | PDOC PROGRESS REPORT ---
Subjective Progress Note for:: 10/06/18 Subjective:: Has nausea. Denies any abdominal pain. Has had left groin pain. Reason For Visit: INCARCERATED,POSSIBLE STRANGULATED Physical Exam Vital Signs: Temp Pulse Resp BP Pulse Ox 98.1 F 97 20 146/77 H 95 10/06/18 08:00 10/06/18 08:00 10/06/18 08:00 10/06/18 08:00 10/06/18 08:00 Intake & Output 10/05/18 10/06/18 10/07/18 06:59 06:59 06:59 Intake Total 1690 Output Total 245 400 Balance 1445 -400 Weight 50.4 kg General appearance: PRESENT: no acute distress, cooperative Respiratory exam: PRESENT: clear to auscultation kirsty Cardiovascular exam: PRESENT: RRR GI/Abdominal exam: PRESENT: other - Soft, mildly distended, nontender to palpation other than at her groin. Her groin wound is clean dry and intact with no significant swelling and no erythema. Results Laboratory Results: 10/05/18 15:00 10/05/18 15:00 10/05/18 10/05/18 10/05/18 15:00 15:00 15:00 WBC 12.8 H RBC 5.06 Hgb 13.9 Hct 41.9 MCV 83 MCH 27.4 MCHC 33.0 RDW 14.8 H Plt Count 470 H Seg Neutrophils % 63.1 Lymphocytes % 24.0 Monocytes % 10.3 Eosinophils % 1.9 Basophils % 0.7 Absolute Neutrophils 8.1 Absolute Lymphocytes 3.1 Absolute Monocytes 1.3 Absolute Eosinophils 0.2 Absolute Basophils 0.1 Sodium 137.6 Potassium 4.4 Chloride 98 Carbon Dioxide 27 Anion Gap 13 BUN 5 L Creatinine 0.63 Est GFR ( Amer) > 60 Est GFR (Non-Af Amer) > 60 Glucose 81 Lactic Acid Calcium 9.7 Total Bilirubin 0.6 AST 36 ALT 33 Alkaline Phosphatase 135 H Total Protein 8.3 H Albumin 4.8 Urine Color YELLOW Urine Appearance CLEAR Urine pH 6.0 Ur Specific [place] 1.012 Urine Protein NEGATIVE Urine Glucose (UA) NEGATIVE Urine Ketones NEGATIVE Urine Blood NEGATIVE Urine Nitrite NEGATIVE Ur Leukocyte Esterase LARGE H Urine WBC (Auto) 9 Urine RBC (Auto) 3 10/05/18 22:08 WBC RBC Hgb Hct MCV MCH MCHC RDW Plt Count Seg Neutrophils % Lymphocytes % Monocytes % Eosinophils % Basophils % Absolute Neutrophils Absolute Lymphocytes Absolute Monocytes Absolute Eosinophils Absolute Basophils Sodium Potassium Chloride Carbon Dioxide Anion Gap BUN Creatinine Est GFR ( Amer) Est GFR (Non-Af Amer) Glucose Lactic Acid 0.6 L Calcium Total Bilirubin AST ALT Alkaline Phosphatase Total Protein Albumin Urine Color Urine Appearance Urine pH Ur Specific [place] Urine Protein Urine Glucose (UA) Urine Ketones Urine Blood Urine Nitrite Ur Leukocyte Esterase Urine WBC (Auto) Urine RBC (Auto) Impressions: Pelvis Ultrasound 10/05/18 14:44 IMPRESSION: 1. A large complex cystic/echogenic solid mass in the left inguinal canal. Further evaluation with CT abdomen and pelvis with IV contrast suggested. 2. Multiple lymph nodes are noted in the left inguinal region. Abdomen/Pelvis CT 10/05/18 20:08 IMPRESSION: There is a fat and fluid-containing left inguinal hernia. Hernia does not appear to contain bowel. The possibility of strangulation or incarceration of the herniated fat is not excluded on the basis of this exam Reactive inguinal adenopathy Chest X-Ray 10/05/18 22:58 IMPRESSION: No pneumonia. Assessment & Plan - Diagnosis (1) Femoral hernia of left side with gangrene Is this a current diagnosis for this admission?: Yes Plan: Status post left femoral hernia repair last night. Patient with evidence of possible ileus on plain films and nausea but no tenderness and certainly no peritoneal signs. Will make the patient n.p.o. and placed on IV fluids and observe.
[2018-10-07] MEDS: KETOROLAC TROMETHAMINE 10 MG TABLET PO PRN (00:34)
--- NOTE | 2018-10-07 09:26 | PDOC PROGRESS REPORT ---
Subjective Progress Note for:: 10/07/18 Subjective:: feels ok Reason For Visit: LEFT INGUINAL HERNIA REPAIR Physical Exam Vital Signs: Temp Pulse Resp BP Pulse Ox 99.2 F 116 H 13 127/72 H 91 L 10/07/18 07:53 10/07/18 07:53 10/07/18 07:53 10/07/18 07:53 10/07/18 07:53 Intake & Output 10/06/18 10/07/18 10/08/18 06:59 06:59 06:59 Intake Total 1690 1600 1000 Output Total 245 1950 350 Balance 1445 -350 650 Weight 50.4 kg 50.4 kg General appearance: PRESENT: no acute distress Head exam: PRESENT: normocephalic Eye exam: PRESENT: EOMI Mouth exam: PRESENT: moist Neck exam: PRESENT: full ROM Respiratory exam: PRESENT: clear to auscultation kirsty Cardiovascular exam: PRESENT: RRR Pulses: PRESENT: normal radial pulses, normal femoral pulses GI/Abdominal exam: PRESENT: soft Rectal exam: PRESENT: deferred Extremities exam: PRESENT: other - left groin wound clean dry Musculoskeletal exam: PRESENT: ambulatory, full ROM Neurological exam: PRESENT: alert, awake, oriented to person, oriented to place Psychiatric exam: PRESENT: appropriate affect Skin exam: PRESENT: dry Results Laboratory Results: 10/06/18 09:33 10/06/18 09:33 10/06/18 10/06/18 09:33 09:33 WBC 10.6 H RBC 4.22 Hgb 11.8 L D Hct 34.9 L MCV 83 MCH 27.9 MCHC 33.8 RDW 14.6 H Plt Count 400 Seg Neutrophils % 83.7 H Lymphocytes % 10.9 L Monocytes % 4.9 Eosinophils % 0.0 Basophils % 0.5 Absolute Neutrophils 8.9 H Absolute Lymphocytes 1.2 Absolute Monocytes 0.5 Absolute Eosinophils 0.0 Absolute Basophils 0.1 Sodium 134.3 L Potassium 4.4 Chloride 105 Carbon Dioxide 22 Anion Gap 7 BUN 6 L Creatinine 0.53 Est GFR ( Amer) > 60 Est GFR (Non-Af Amer) > 60 Glucose 133 H Calcium 8.8 Total Bilirubin 0.5 AST 33 ALT 29 Alkaline Phosphatase 108 Total Protein 6.1 L Albumin 3.4 L Impressions: Pelvis Ultrasound 10/05/18 14:44 IMPRESSION: 1. A large complex cystic/echogenic solid mass in the left inguinal canal. Further evaluation with CT abdomen and pelvis with IV contrast suggested. 2. Multiple lymph nodes are noted in the left inguinal region. Abdomen/Pelvis CT 10/05/18 20:08 IMPRESSION: There is a fat and fluid-containing left inguinal hernia. Hernia does not appear to contain bowel. The possibility of strangulation or incarceration of the herniated fat is not excluded on the basis of this exam Reactive inguinal adenopathy Chest X-Ray 10/05/18 22:58 IMPRESSION: No pneumonia. Abdomen X-Ray 10/06/18 00:00 IMPRESSION: Probable ileus. Assessment & Plan - Plan Summary Plan Summary: s/p repair of left femoral hernia doing well now will advance diet home later today will need surgery ocox5by f/u in a week.
--- NOTE | 2018-10-07 09:41 | PDOC DISCHARGE SUMMARY ---
General - Admit/Disc Date/PCP Admission Date/Primary Care Provider: 10/06/18 15:56 Discharge Date: 10/07/18 - Discharge Diagnosis (1) Left inguinal hernia Is this a current diagnosis for this admission?: Yes - Additional Information Resuscitation Status: Full Code Home Medications: Albuterol Sulfate [Proair HFA Inhalation Aerosol 8.5 gm MDI] 2 puff IH Q4HP PRN 10/06/18 Montelukast Sodium [Singulair 10 mg Tablet] 10 mg PO QHS 10/06/18 History of Present Illness History of Present Illness: REBEKAH RASCON is a 58 year old female patient with left lower abdominal pain groin pain and to have a incarcerated left femoral hernia she was taken to the operating room on the day of admission where she underwent a left groin exploration with excision of incarcerated omentum and repair of left femoral hernia Physical Exam Vital Signs: Temp Pulse Resp BP Pulse Ox 99.2 F 116 H 13 127/72 H 91 L 10/07/18 07:53 10/07/18 07:53 10/07/18 07:53 10/07/18 07:53 10/07/18 07:53 Intake & Output 10/06/18 10/07/18 10/08/18 06:59 06:59 06:59 Intake Total 1690 1600 1000 Output Total 245 1950 350 Balance 1445 -350 650 Weight 50.4 kg 50.4 kg General appearance: PRESENT: no acute distress Eye exam: PRESENT: EOMI Mouth exam: PRESENT: moist Neck exam: PRESENT: full ROM Respiratory exam: PRESENT: clear to auscultation kirsty Cardiovascular exam: PRESENT: RRR Pulses: PRESENT: normal radial pulses, normal femoral pulses GI/Abdominal exam: PRESENT: soft Rectal exam: PRESENT: deferred Extremities exam: PRESENT: other - left groin wound clean dry Psychiatric exam: PRESENT: appropriate affect Skin exam: PRESENT: dry Results Laboratory Results: 10/06/18 09:33 10/06/18 09:33 10/06/18 10/06/18 09:33 09:33 WBC 10.6 H RBC 4.22 Hgb 11.8 L D Hct 34.9 L MCV 83 MCH 27.9 MCHC 33.8 RDW 14.6 H Plt Count 400 Seg Neutrophils % 83.7 H Lymphocytes % 10.9 L Monocytes % 4.9 Eosinophils % 0.0 Basophils % 0.5 Absolute Neutrophils 8.9 H Absolute Lymphocytes 1.2 Absolute Monocytes 0.5 Absolute Eosinophils 0.0 Absolute Basophils 0.1 Sodium 134.3 L Potassium 4.4 Chloride 105 Carbon Dioxide 22 Anion Gap 7 BUN 6 L Creatinine 0.53 Est GFR ( Amer) > 60 Est GFR (Non-Af Amer) > 60 Glucose 133 H Calcium 8.8 Total Bilirubin 0.5 AST 33 ALT 29 Alkaline Phosphatase 108 Total Protein 6.1 L Albumin 3.4 L Impressions: Pelvis Ultrasound 10/05/18 14:44 IMPRESSION: 1. A large complex cystic/echogenic solid mass in the left inguinal canal. Further evaluation with CT abdomen and pelvis with IV contrast suggested. 2. Multiple lymph nodes are noted in the left inguinal region. Abdomen/Pelvis CT 10/05/18 20:08 IMPRESSION: There is a fat and fluid-containing left inguinal hernia. Hernia does not appear to contain bowel. The possibility of strangulation or incarceration of the herniated fat is not excluded on the basis of this exam Reactive inguinal adenopathy Chest X-Ray 10/05/18 22:58 IMPRESSION: No pneumonia. Abdomen X-Ray 10/06/18 00:00 IMPRESSION: Probable ileus. Qualifiers - * PATIENT BEING DISCHARGED WITH ANY OF THE FOLLOWING DIAGNOSIS: No VTE patient discharged on overlapping Therapy?: No Reason(s) for not prescribing Overlap Therapy:: Tx not tolerated Stroke Pt being discharged on Anti-thrombolytic therapy?: No Reason(s) for not prescribing Anti-thrombolytic therapy:: Not indicated Stroke Pt being discharged on Anti-coagulation therapy?: No Reason(s) for not prescribing Anti-coagulation therapy:: Not indicated Stroke Pt being discharged on Statins?: No Reason(s) for not prescribing Statins therapy:: Not indicated [place] Pt being discharged on Aspirin therapy?: No Reason(s) for not prescribing Aspirin therapy:: Not indicated Reason(s) for not prescribing Statin therapy:: Not indicated Reason(s) for not prescribing ACEI/ARBS:: Not indicated Acute Heart Failure - Is this a Heart Failure Patient?: No Plan Time Spent: Less than 30 Minutes - pt s/p left incarcerated femoral hernia repaired now doing well maxine diet ready for dc home
[2018-10-07] MEDS: FAMOTIDINE 20 MG TABLET PO SCH (09:53)
[2018-10-07] MEDS: DOCUSATE SODIUM 100 MG CAPSULE PO SCH (09:53)
[2018-10-07 11:08] VITALS: BP 123/63
== END 2018-10-07 13:11 | disposition home or self-care (01) | DRG 352 ==
LOC: ER 13:59 → EH 23:13 → 2S 10-06 01:52 → OBSVTOIN 10-06 15:56
PROVIDERS: ADMIT Surgery; ATTEND Surgery
PROC: 0DBU0ZZ Excision of Omentum, Open Approach (ICD-10-PCS; 2018-10-06)
PROC: 07BJ0ZZ Excision of Left Inguinal Lymphatic, Open Approach (ICD-10-PCS; 2018-10-06)
PROC: 0YQ80ZZ Repair Left Femoral Region, Open Approach (ICD-10-PCS; principal; 2018-10-06 00:30)
DX: K41.40 Unilateral femoral hernia, with gangrene, not specified as recurrent (principal); I99.8 Other disorder of circulatory system; I88.9 Nonspecific lymphadenitis, unspecified; J44.9 Chronic obstructive pulmonary disease, unspecified; Z87.891 Personal history of nicotine dependence
CPT/HCPCS: 36415; 71045; 74019; 74177; 76857; 80053; 81001; 83605; 85025; 87086; 88302; C9290; J0295; J1100; J1885; J2250; J2270; J2370; J2405; J2704; J2765; J3010; J3490; J7030; J7120